=== PATIENT | male | born 1935 | race Caucasian/White ===

== ENCOUNTER 2017-04-19 08:51 | Outpatient (CLI) | payer MEDICARE, BC ==
[2012-06-18 10:50] VITALS: O2SAT 96
== END 2017-04-19 08:52 | disposition home or self-care (01) | DRG 554 ==
LOC: CONVCARE 08:51
PROVIDERS: ATTEND Orthopaedic Surgery
DX: M19.012 Primary osteoarthritis, left shoulder (principal)
CPT/HCPCS: 73030

== ENCOUNTER 2017-08-21 08:56 | Day surgery (SDC) | payer MEDICARE, BC ==
[~2017-08-21 08:56] MED LIST: LIDOCAINE HCL 1% MPF SOL ONE; PROPOFOL 500 MG/50 ML EMU IV ONE
[2017-08-21 10:35] VITALS: PULSE 64
[2017-08-21 10:50] VITALS: BP 142/72; RESP 20; TEMP 98; O2SAT 95
== END 2017-08-21 11:05 | disposition home or self-care (01) | DRG 951 ==
LOC: SURG 08:56
PROVIDERS: ATTEND Surgery
DX: Z12.11 Encounter for screening for malignant neoplasm of colon (principal); K57.30 Diverticulosis of large intestine without perforation or abscess without bleeding; Z80.0 Family history of malignant neoplasm of digestive organs; Z86.010 Personal history of colon polyps; R73.03 Prediabetes
CPT/HCPCS: G0105; J2001; J2704